=== PATIENT | female | born 1950 | race Caucasian/White ===

== ENCOUNTER 2023-12-28 11:04 | Emergency (ER) | payer MEDICARE, OTHER ==
[~2023-12-28] VITALS: Ht 160 cm; Wt 68.9 kg
[2023-12-28] MEDS ORDERED: ATOR40TA (11:53)
[2023-12-28] MEDS ORDERED: LOSA25TA27 PO (11:53)
[2023-12-28] MEDS ORDERED: OMEP40CA21 PO (11:53)
[2023-12-28] MEDS ORDERED: OXYB-58 PO (11:53)
[2023-12-28] MEDS ORDERED: ACET1TAB23 PO (11:53)
[2023-12-28] MEDS ORDERED: TIMO5DRO18 EACHEYE (11:53)
[2023-12-28] MEDS ORDERED: MECLIZINE HCL 25 MG TABLET ONE (11:59)
[2023-12-28] MEDS ORDERED: ONDANSETRON 4 MG/2 ML VIAL ONE (11:59)
[2023-12-28] MEDS: MECLIZINE HCL 25 MG TABLET PO ONE (12:13)
[2023-12-28] MEDS: ONDANSETRON 4 MG/2 ML VIAL IV ONE (12:13)
[2023-12-28 12:17] LABS: BASOPHILS # (AUTO) 0.1 K/UL (0.0-0.2); BASOPHILS % (AUTO) 0.6 % (0.0-2.0); EOSINOPHILS % (AUTO) 0.3 % (0.0-7.0); HEMATOCRIT 37.7 % (31.2-41.9); HEMOGLOBIN 12.4 g/dL (10.9-14.3); LYMPHOCYTES # (AUTO) 0.9 K/uL (0.8-4.8); LYMPHOCYTES % (AUTO) 8.3 % (20.5-51.5); MEAN CORPUSCULAR HEMOGLOBIN 29.8 uug (24.7-32.8); MEAN CORPUSCULAR HGB CONC 33 g/dL (32.3-35.6); MEAN CORPUSCULAR VOLUME 90.3 fL (75.5-95.3); MONOCYTES # (AUTO) 0.5 K/uL (0.1-1.30); MONOCYTES % (AUTO) 4.7 % (0.0-11.0); NEUTROPHILS % (AUTO) 86.1 % (38.5-71.5); PLATELET COUNT (AUTO) 268 K/uL (179-408); RED BLOOD CELL COUNT(AUTO) 4.17 MIL/uL (3.63-4.92); RED CELL DISTRIBUTION WIDTH 14.6 % (12.3-17.7); WHITE BLOOD COUNT (AUTO) 10.5 K/uL (3.8-11.8)
[2023-12-28 12:33] LABS: DIFFERENTIAL COMMENT 1
[2023-12-28 13:07] LABS: CALCIUM 9.5 mg/dL (8.5-10.1); CARBON DIOXIDE 26 mmol/L (21-32); CHLORIDE 101 mmol/L (98-107); CREATININE 0.6 mg/dL (0.6-1.3); GLUCOSE 120 mg/dL (74-106); POTASSIUM 4.6 mmol/L (3.5-5.1); SODIUM SERUM 134 mmol/L (136-145); UREA NITROGEN, BLOOD 12 mg/dL (7-18)
[2023-12-28] MEDS ORDERED: ONDA4TAB11 PO (13:58)
[2023-12-28] MEDS ORDERED: MECL-159 PO (13:58)
[2023-12-28 15:10] VITALS: BP 131/60; O2SAT 99
== END 2023-12-28 15:11 | disposition home or self-care (01) ==
LOC: ER 11:04
DX: R42 Dizziness and giddiness (principal); E78.5 Hyperlipidemia, unspecified; K21.9 Gastro-esophageal reflux disease without esophagitis; Z79.899 Other long term (current) drug therapy
CPT/HCPCS: 99285; 70450; 96374; 71045; 80048; 85025; 84484; 36415; 93005; 72125; J2405; A4606; A4663; J8597